=== PATIENT | male | born 1940 | race Caucasian/White ===

== ENCOUNTER 2016-06-26 05:10 | Day surgery (SDC) | payer MEDICARE ==
[2016-06-25 15:02] LABS: HEMATOCRIT 45.9 % (42.0-54.0); HEMOGLOBIN 16.1 g/dL (13.5-17.5); MCH 32.6 pg (26.0-34.0); MCHC 35.1 g/dL (31.0-37.0); MCV 92.9 fL (80.0-100.0); MEAN PLATELET VOLUME 9.4 fL (7.4-10.4); RBC 4.94 10x6/uL (4.20-6.10); RDW 13.6 % (11.5-14.5); WBC 9.2 10x3/uL (4.8-10.8)
[~2016-06-26] VITALS: Ht 175.3 cm; Wt 74.8 kg
[2016-06-26 08:08] VITALS: BP 136/78; Ht 175.3 cm; Wt 74.8 kg
--- NOTE | 2016-06-26 12:44 | NUR ---
VERSED 1 MG GIVEN FOR RESTLESS PT. PAIN CONTINUED AT A 9 EVEN AFTER PAIN MEDICATION GIVEN. AFTER VERSED PT. SLEEP RESTED QUIETLY, AROUSABLE BY VERBAL STIMULI. ON TRANSPORT TO [facility] PT RESTING QUIETLY. THROAT STILL DRY AFTER 2-3 TABLESPOONS OF ICE CHIPS.
--- NOTE | 2016-06-26 13:40 | NUR ---
1330-MEDICATED WITH ONE 5MG NORCO FOR PAIN.
--- NOTE | 2016-06-26 16:10 | NUR ---
ASSISTED PATIENT TO WALK TO BATHROOM TO ATTEMPT TO VOID. STOOD IN FRONT OF TOILET, UNABLE TO VOID DESPITE FEELING URGE. WATER FAUCET TURNED ON, STILL UNABLE TO VOID. RETURNED TO BED. RIGHT INGUINAL INCISION C/D/I, AREA SOFT, NONTENDER. DENIES COMPLAINTS EXCEPT FOR NEED TO URINATE
--- NOTE | 2016-06-26 19:32 | NUR ---
16 FR MASON CATHETER INSERTED PER DR REAL ORDER AND ADVISED PATIENT TO GO TO DR REAL'S OFFICE Saturday06/28/16 AT 10:00 TO HAVE IT REMOVED. PATIENT TOLERATED PROCEDURE WELL. NO DIFFICULTY INSERTING MASON. CLEAR YELLOW URINE FLOWING
--- NOTE | 2016-06-26 19:41 | NUR ---
500 CC CLEAR YELLOW URINE DRAINED. PATIENT DISCHARGED HOME VIA WHEELCHAIR TO PRIVATE VEHICLE WITH DAUGHTER AND SPOUSE
--- NOTE | 2016-08-15 10:17 | HP ---
PATIENT: KATIE PHILIP MEDICAL RECORD: [id number] ACCOUNT: [id number] [facility] : 40 ADMISSION DATE: 06/26/16 HISTORY AND PHYSICAL EXAMINATION This is a history and physical addendum. The patient has had a CT scan recently, which showed an abnormality in the liver and an MRI with and without contrast of the liver has been recommended. I will ask my nurse Mercy to coordinate with Dr. Beal's office regarding this. The patient is undergoing a workup by Dr. Stinson. The patient states that he has had some blood in his sperm recently. I told him that when he sees Dr. Stinson on the , he might want to mention that to Dr. Stinson. The rest of the history and physical examination is a typed history and physical and is on the chart. It is unchanged otherwise. TRANSINT:[id number] Voice Confirmation ID: [id number] DOCUMENT ID: [id number] NADYA REAL MD at 1017 CC: NICK BEAL M.D. and [facility] [id number] DICTATION DATE: 06/26/16 1142 E/M ENGINEER: 06/26/16 1157 [facility] 06/26/16 [id number] [place] [address]
--- NOTE | 2016-08-15 10:17 | OP ---
PATIENT NAME: KATIE PHILIP MEDICAL RECORD: [id number] :40 LOCATION:[facility] ADMISSION DATE: SURGEON: NADYA REAL MD DATE OF OPERATION: 06/26/2016 PREOPERATIVE DIAGNOSIS: Symptomatic right inguinal hernia. POSTOPERATIVE DIAGNOSIS: Symptomatic right indirect inguinal hernia. PROCEDURE: Open right indirect inguinal herniorrhaphy with bilayer preperitoneal polypropylene mesh. SURGEON: Nadya Real MD FUEL CELL TECHNICIAN: None. BLOOD LOSS: Minimal. ANESTHESIA: General. COMPLICATIONS: None. The risks, possible complications and alternatives to procedure were explained to the patient. He elects to proceed. The discussion specifically included, but was not limited to, bleeding requiring emergency reoperation, infection, intestinal injury, as well as recurrent herniation. OPERATIVE COURSE: The patient was conveyed to the operating room electively on 06/26/2016. General anesthesia was induced by the anesthesia staff. The genitals and abdomen were sterilely prepped and draped. A transverse incision was accomplished in the right inguinal area. Sharp dissection was carried down through skin and subcutaneous tissue as well as Yovani fascia. I cleaned the external oblique aponeurosis of overlying connective tissue. I incised the external oblique aponeurosis along the direction of its fibers. I bluntly dissected down through the internal oblique and transversus abdominis muscle layers. A preperitoneal pocket was fashioned bluntly. An indirect hernia was reduced in its entirety. I opened the hernia sac. There was a sliding component. I excised the portions of the hernia sac and then closed it with a running 3-0 Vicryl suture. I then cut out 2 ovals of polypropylene mesh and sutured one oval on top of the other oval. I then placed the mesh in the preperitoneal space. Once I was satisfied with placement, I allowed the muscular layers to come together over the mesh. The internal oblique and transversus abdominis muscle layers were sutured to underlying mesh with multiple interrupted horizontal mattress 0-Surgidac sutures. The external oblique aponeurosis was closed with a running #1 Vicryls. Yovani fascia was closed with interrupted 3-0 Vicryls. The subdermis was approximated with interrupted 3-0 Vicryl. The skin was approximated with a running intracuticular 4-0 Vicryl. Benzoin and Steri-Strips were applied. The patient was then extubated and conveyed to post-anesthesia care unit where he was in stable condition. TRANSINT:[id number] Voice Confirmation ID: [id number] DOCUMENT ID: [id number] OPERATIVE REPORT [id number] KATIE PHILIP ROBERT MD at 1017 CC: NICK BEAL M.D., LUCA RIVERA and KALE HILTON MD [id number] DICTATION DATE: 06/26/16 1145 EDGING CATCHER: 06/26/16 1308 [facility] 06/26/16 [id number] [place] [address]
== END 2016-06-26 19:41 | disposition home or self-care (01) ==
LOC: D.OPS 05:10 → D.PAN 10:15 → D.OPS 10:15
PROVIDERS: Anesthesiology
DX: K40.90 Unilateral inguinal hernia, without obstruction or gangrene, not specified as recurrent (principal)

== ENCOUNTER → 2017-03-08 07:24 | Outpatient (CLI) | payer MEDICARE ==
[2016-06-26 08:08] VITALS: BMI 24.4
== END | disposition home or self-care (01) ==
LOC: D.CT 07:24
DX: M79.605 Pain in left leg (principal); M79.604 Pain in right leg

== ENCOUNTER → 2017-05-23 07:26 | Outpatient (CLI) | payer MEDICARE ==
[2016-06-26 08:08] VITALS: BMI 24.4
[~2017-05-23 07:26] MED LIST: ADVIL200 MG PO; NORCO 7.5/325 T1 TA1 PO; ZANTAC150 MG PO
--- NOTE | 2017-05-28 08:55 | EC ---
PATIENT:KATIE PHILIP DATE OF SERVICE: 05/23/17 SEX: M MEDICAL RECORD: [id number] DATE OF : 40 [facility] AGE OF PATIENT: 76 ADMISSION DATE: 05/23/17 REFERRING PHYSICIAN: INTERPRETING PHYSICIAN: MAGDI SHARMA MD ECHOCARDIOGRAM REPORT ECHO CHARGES 4 ECHO COMPLETE CLINICAL DIAGNOSIS: CHEST PAIN,SOB,CLAUDICATION ECHOCARDIOGRAPHIC MEASUREMENTS (adult normal given) AC root (d.<3.7cm) 3.3 cm LV Septum d (<1.2 cm> 1.5 cm Valve Excursion 1.3 cm LV Septum (systole) 1.7 cm Left Atria (s.<4.0cm> 4.0 cm LVPW d(<1.2cm) 1.5 cm RV (d.<2.3cm) 3.0 cm LVPW (sytole) 1.7 cm LV diastole(<5.6CM) 6.2 cm MV E-F(>70mm/sec) cm LV systole 4.7 cm LVOT Diameter 17 cm MV exc.(>10mm) 1.8 cm Est.ejection fraction (50-75%) % Pericardial Effusion N DOPPLER: LVIT cm/sec A 86.0 cm/sec E 46.0 cm/sec LA cm/sec RVSP 36 mmHg LVOT 85 cm/sec AOP1/2T m/s Asc. Ao 157 cm/sec RVOT 59 cm/sec RA cm/sec PA 142 cm/sec AV Gradient Peak 9.84 mmHg AV Mean 5.20 mmHg AV Area 1.1 cm MV Gradient Peak 2.7 mmHg MV Mean 0.73 mmHg MV Area cm COMMENTS: Meter Record Clerk: 2 ROBERT ECHEVARRIA First Aid Attendant: 4 Dr. Sharma TAPE# PACS DATE OF SERVICE: 05/23/2017 PROCEDURE: Transthoracic echocardiogram. FINDINGS: 1. The left ventricle is in upper limits of normal and ____ diastolic dimension. There is evidence of moderate left ventricular hypertrophy that is concentric in nature. 2. The overall ejection fraction appears to be lower limits of normal at 50% to 55%. There are no obvious regional wall motion abnormalities. Inflow ECHOCARDIOGRAM REPORT [id number] KATIE PHILIP characteristics show diastolic dysfunction. 3. The aortic valve appears to be sclerotic without any evidence of significant aortic stenosis. 4. The left atrium is mildly dilated. 5. The right atrium is mildly dilated to moderately dilated. 6. The right ventricle is mildly dilated with right ventricular hypertrophy with normal function. 7. The interatrial septum is normal. 8. Pericardium is normal. 9. The pulmonic valve has trace pulmonic insufficiency. 10. The IVC appears to be normal size, but does not collapse with inspiration. CONCLUSIONS: The patient has evidence of mild dilated left ventricular chamber with low normal ejection fraction. There is some evidence of possible septal hypokinesis with normal demonstrated. There are no gross valvular abnormalities. There is evidence of aortic sclerosis without stenosis. TRANSINT:[id number] Voice Confirmation ID: [id number] DOCUMENT ID: [id number] MAGDI SHARMA MD at 0855 CC: [id number] DICTATION DATE: 05/27/17821 DRAFTER DIRECTIONAL SURVEY: 05/27/17 1039 [facility] CLI 05/23/17 [id number] [place] [address]
== END | disposition home or self-care (01) ==
LOC: D.RT 05-16 11:00 → D.ECHO 07:26 → D.RT 10:00
DX: I73.9 Peripheral vascular disease, unspecified (principal); R07.9 Chest pain, unspecified; R06.02 Shortness of breath; R09.89 Other specified symptoms and signs involving the circulatory and respiratory systems

== ENCOUNTER → 2017-05-29 17:22 | Outpatient (CLI) | payer MEDICARE ==
[2016-06-26 08:08] VITALS: BMI 24.4
[2017-05-29 18:46] LABS: ALBUMIN 3.2 g/dL (3.4-5.0); BILIRUBIN - DIRECT 0.24 mg/dL (0.00-0.30); BILIRUBIN - INDIRECT 0.4 mg/dL (0.00-1.00); BILIRUBIN - TOTAL 0.64 mg/dL (0.2-1.3); CHOL - HDL RATIO 2.5 ratio (2.3-4.9); LDL-HDL RATIO 1.1 ratio (1.5-3.5); PROTEIN - SERUM 6.2 g/dL (6.4-8.2)
== END | disposition home or self-care (01) ==
LOC: D.LABREF 17:22
PROVIDERS: Internal Medicine Cardiovascular Disease
DX: I25.10 Atherosclerotic heart disease of native coronary artery without angina pectoris (principal); I10 Essential (primary) hypertension; I20.9 Angina pectoris, unspecified

== ENCOUNTER 2017-06-25 07:09 | Outpatient (CLI) | payer MEDICARE ==
[~2017-06-25] VITALS: Ht 175.3 cm; Wt 65.5 kg
--- NOTE | ~2017-06-25 | OP ---
PATIENT NAME: KATIE PHILIP MEDICAL RECORD: [id number] :40 LOCATION:[facility] ADMISSION DATE: SURGEON: MAGDI WONG MD DATE OF OPERATION: 06/25/2017 PROCEDURES: Left heart catheterization, LV gram, coronary angiogram, selective bilateral renal angiography, AFR, selective left contralateral common femoral artery angiography, attempted atherectomy of the left SFA. DESCRIPTION OF PROCEDURE: The patient was brought into the cardiac catheterization lab in stable condition. Both groins were sterilely prepped and draped. The patient had a 6-[place] sheath placed in the right common femoral artery using modified Seldinger technique. We selectively engaged the left main coronary artery, the right coronary artery, the left ventricular cavity, the left renal artery, the right renal artery, the left common femoral artery from a contralateral position. We then exchanged the diagnostic catheters for interventional guiding peripheral catheters with a 45-cm destination sheath. We were able to place into the distal common femoral artery on the left from a contralateral position. We were then able to take a Frontrunner device and probe the ostium in the proximal segment of the left SFA. We were unable to get through the fibrous cap and although very diligent in its effort was unsuccessful in its results. The procedure was terminated. FINDINGS: 1. Left main has distal 30% to 40% stenosis and an ostial plaquing. 2. The LAD is a diffusely diseased vessel with an ostial 40% stenosis and a mid 40% stenosis. There is left to right collaterals from both the LAD and the circumflex segment. 3. The circumflex is a codominant vessel with diffuse plaquing. 4. The RCA is 100% occluded proximally with right to right and left to right collaterals. 5. The left renal artery has mild plaquing. 6. The right renal artery has proximal 50%. 7. Hemodynamics: Left ventricular ejection fraction shows inferior basilar aneurysmal segment with preserved anterior apical and lateral wall function. Overall, ejection fraction is 35% to 40%. End-diastolic pressure was normal. There is no significant mitral regurgitation. 8. The abdominal aorta has diffuse atherosclerotic changes. 9. The left common iliac has atherosclerotic changes. 10. The left internal iliac and external iliac have atherosclerotic changes. No significant stenoses. 11. The left common femoral artery has mild calcification. 12. The left profunda is widely patent and providing collaterals through the adductor canal. There is at least 3-vessel flow to the level of the mid leg. There was a good popliteal segment. 13. The right common femoral artery has a 50% stenosis. There is an ulcerated plaque seen in the right common carotid artery. 14. The right internal iliac artery has a proximal 50% stenosis. 15. The right external iliac artery is widely patent. 16. The right common femoral artery is normal. 17. The right profunda shows no significant disease. 18. The right SFA is 100% occluded and has collateralization to the adductor canal and there is at least 3-vessel flow to the level of the mid leg. IMPRESSION: OPERATIVE REPORT [id number] KATIE PHILIP 1. Severe single-vessel coronary artery disease. 2. 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 3. Severe bilateral SFA stenoses with an unsuccessful attempt at percutaneous atherectomy at the left SFA. RECOMMENDATIONS: At this point are to consider returning with more aggressive approach from a popliteal aspect of revascularization versus continuing medical management and no intervention versus possible referral for bypass surgery with the fem-pop bilaterally. At this point in time, there is no threatened ischemia. There is no ulceration. The patient is clinically stable. We will continue current medical management. Discussed with the patient these options. TRANSINT:[id number] Voice Confirmation ID: [id number] DOCUMENT ID: [id number] MAGDI WONG MD at 1038 CC: [id number] DICTATION DATE: 06/25/17 0953 GRAIN ELEVATOR WORKER: 06/25/17 1157 [facility] CLI 06/25/17 [facility] [address] [place] [address]
--- NOTE | ~2017-06-25 | HEMODYNAMI ---
PATIENT:KATIE PHILIP MEDICAL RECORD: [id number] : 40 LOCATION:[facility] ADMISSION DATE: 06/25/17 Generatedon:06/25/20179:55 Patient name: KATIE PHILIP Patient #: [id number] SSN: : 1940 Date of study: 06/25/2017 Page: Of Hemodynamic Procedure Report Patient Data Patient Demographics Procedure consent was obtained First Name: KATIE Gender: Male Last Name: CEDRICK : 1940 [facility] Initial: J Age: 76 year(s) Patient #: [id number] Race: Unknown Additional ID: [id number] Contact details [address]: [address] [place] [address] State: [place] City: [place] Zip code: [address] Past Medical History Allergies: No known allergies Admission Admission Data Admission Date: 06/25/2017 Admission Time: 7:09 Admit Source: Other Lab Results Lab Result Date: 06/25/2017 Lab Result Time: 7:30 Biochemistry Name Units Result Min Max BUN mg/dl 17 --(---*)-- 7 18 Creatinine mg/dl 1.1 --(--*-)-- 0.6 1.3 CBC Name Units Result Min Max Hematocrit % 39.5 -*(----)-- 42 54 Hemoglobin g/dl 13.8 --(*---)-- 13.5 17.5 Procedure Procedure Types Cath Procedure Diagnostic Procedure LHC LHC w/Coronaries Miscellaneous Procedures Moderate Sedation up to 45 minutes Peripheral Cath Diagnostic Procedure Cath Peripheral Hzypo-Zvwrwiz-Oam-Off Renal Arteriogram Procedure Description Procedure Date Procedure Date: 06/25/2017 Procedure Start Time: 8:56 Procedure End Time: 9:48 Procedure Staff Name Function Kirsten Martinez RT Monitor Anthony Dubose RT Scrub Javier Sharma MD Performing Physician Mic Torres RN Nurse Procedure Data Cath Procedure Fluoroscopy Diagnostic fluoroscopy Total fluoroscopy Time: 17 time: 17 min min Diagnostic fluoroscopy Total fluoroscopy dose: 700 dose: 700 mGy mGy Contrast Material Contrast Material Type Amount (ml) Isovue 300 110 Entry Location Entry Primary Successful Side Size Upsize Upsize Entry Closure Succes sful Closure Location (Fr) 1 (Fr) 2 (Fr) Remarks Device Remarks Femoral Right 5 Fr 6 Fr 6 Fr Exoseal artery Long Short Estimated blood loss: 10 ml Diagnostic catheters Device Type Used For End Catheter Placement MULTIPACK JL 4.0 5Fr Procedure catheter MULTIPACK 3DRC 5Fr Procedure catheter MULTIPACK Pigtail 5 Fr Procedure catheter Procedure Complications No complications Procedure Medications Medication Administration Route Dosage 0.9% NaCl I.V. 100 ml Oxygen NC 2 l/min Heparin Flush Bag added to field 2 bags (1000units/500ml NS) Lidocaine 2% added to field 20 Benadryl I.V. 50 mg Versed I.V. 1 mg Fentanyl I.V. 25 mcg Heparin Bolus I.V. 5000 units Fentanyl I.V. 25 mcg Hemodynamics Rest HGB: 13.8 (g/dl) Heart Rate: 59 (bpm) Pressure Samples Time Site Value (mmHg) Purpose Heart Use Rate(bpm) 9:02 AO 188/81(119) Snapshot 55 9:07 LV 195/8,19 EDP 55 9:07 LV 185/11,15 Pullback 54 9:07 AO 193/70(117) Pullback 54 Gradients Valve Time Site 1 Site 2 Mean SEP/DFP Peak To Heart Use (mmHg) (sec/min) Peak Rate (mmHg) (bpm) Aortic 9:07 LV AO 0 13 0 54 185/11,15 193/70(117) Calculations Valve P-P Mean Valve Index Valve Source Name Gradient Area Flow (cm2) Aortic 0 0 0 0 Snapshots Pre Cath Intra NCS Post Cath Vital Signs Time Heart Resp SPO2 etCO2 NIBP (mmHg) Rhythm Pain Sedation Rate (ipm) (%) (mmHg) Status Level (bpm) 8:38:01 56 22 98 0 185/85(163) NSR 0 (11) 10(A) , No pain 8:42:50 56 16 100 0 197/102(173) NSR 0 (11) 10(A) , No pain 8:47:39 58 16 100 0 187/95(162) NSR 0 (11) 10(A) , No pain 8:52:25 53 17 100 0 186/94(160) NSR 0 (11) 10(A) , No pain 8:57:10 53 15 100 0 182/90(160) NSR 0 (11) 10(A) , No pain 9:02:30 54 14 100 0 186/91(162) NSR 0 (11) 10(A) , No pain 9:07:49 55 14 100 0 176/86(145) NSR 0 (11) 9(A) , No pain 9:12:36 57 14 99 0 180/88(152) NSR 0 (11) 9(A) , No pain 9:17:25 56 14 99 0 180/80(150) NSR 0 (11) 9(A) , No pain 9:22:12 56 16 100 0 174/86(153) NSR 0 (11) 9(A) , No pain 9:26:56 57 17 100 0 184/90(161) NSR 0 (11) 9(A) , No pain 9:31:45 57 12 100 0 192/91(168) NSR 0 (11) 9(A) , No pain 9:37:05 57 14 100 0 189/94(159) NSR 0 (11) 9(A) , No pain 9:41:54 57 16 100 0 189/98(164) NSR 0 (11) 10(A) , No pain 9:46:40 58 12 100 0 191/100(167) NSR 0 (11) 9(A) , No pain Medications Time Medication Route Dose Verified Delivered Reason Notes Effectiveness by by 8:41:26 0.9% NaCl I.V. 100 Mic Mic Per physician ml Melissa Torres RN, RN 8:41:38 Oxygen NC 2 Mic Mic Per physician l/min Melissa Torres RN, RN 8:41:50 Heparin Flush added 2 Mic Mic used for Bag to bags Melissa Torres procedure (1000units/500ml field BAN CEVALLOS NS) 8:42:01 Lidocaine 2% added 20ml Mic Mic for local to vial Melissa Torres anesthetic field BAN CEVALLOS 8:42:17 Benadryl I.V. 50 mg Mic Mic Per physician Melissa Torres RN, RN 9:00:41 Versed I.V. 1 mg Mic Mic for sedation Lorigan Lorigan RN RN 9:00:51 Fentanyl I.V. 25 Mic Haile for sedation mcg Melissa Torres RN RN 9:16:10 Heparin Bolus I.V. 5000 Mic Haile for units Melissa Torres anticoagulation RN RN 9:43:18 Fentanyl I.V. 25 Mic Haile for sedation mcg Melissa Torres RN post doctoral fellow Log Time Note 8:10:23 Mic Torres RN sent for patient. Start room use. 8:29:50 Informed consent obtained and on chart 8:30:17 Admit Source: Other 8:30:20 Diagnostic Cath status Elective 8:30:23 Time tracking: Regular hours 8:30:27 Plan of Care:Hemodynamics will remain stable., Cardiac rhythm will remain stable., Comfort level will be maintained., Respiratory function will remain adequate., Patient/ family verbilizes understanding of procedure., Procedure tolerated without complication., Recovers from procedure without complications.. 8:30:45 H&P Date Dictated: 06/13/2017 Within 30 days and on chart., H&P Addendum completed by physician on day of procedure. (MUST COMPLETE FOR ALL OUTPATIENTS). 8:31:02 Patient received from Pre/Post Procedure Room to CCL 1 Alert and oriented. Tansferred to table in Supine position. 8:31:03 Correct patient and procedure confirmed by team. 8:31:03 Warm blankets applied, and heather hugger turned on for patient comfort. 8:31:04 ECG and BP/O2 sat monitors applied to patient. 8:31:06 Pre-op teaching completed and patient verbalized understanding. 8:31:06 Pre-procedure instructions explained to patient. 8:31:07 Family in waiting room. 8:31:08 Patient NPO since Midnight. 8:31:15 Patient allergic to No known allergies 8:31:32 Is the patient allergic to Iodine/contrast media? No. 8:31:33 Is patient on blood thinner?Yes 8:31:35 ACC The patient was administered the following blood thiners within the last 24 hours: ACCPlavix 8:31:37 Patient diabetic? No. 8:31:39 Previous problem with sedation/anesthesia? No ? 8:31:40 Snore? No 8:31:41 Sleep apnea? No 8:31:42 Opens mouth fully? Yes 8:31:42 Deviated septum? No 8:31:43 Sticks out tongue? Yes 8:31:44 Airway obstruction? No ? 8:31:49 Dentures? Yes In tight 8:31:53 Patient pain scale 0/10 ?. 8:32:07 IV patent on arrival in left forearm with 0.9% NaCl at [facility]. 8:34:20 Lab Result : Hemoglobin 13.8 g/dl 8:34:20 Lab Result : Hematocrit 39.5 % 8:34:20 Lab Result : BUN 17 mg/dl 8:34:20 Lab Result : Creatinine 1.1 mg/dl 8:34:25 Lab results completed and on chart. 8:34:29 Bilateral groins area was prepped with chlora-prep and draped in sterile fashion 8:34:30 Sharps counted by scrub and verified by R.N. 8:34:30 Alarms reviewed by R. N. 8:36:33 Vital chart was started 8:41:06 Baseline sample Acquired. 8:41:11 Rhythm: sinus bradycardia 8:41:13 Full Disclosure recording started 8:41:26 0.9% NaCl 100 ml I.V. was administered by Mic Torres RN; Per physician; 8:41:38 Oxygen 2 l/min NC was administered by Mic Torres RN; Per physician; 8:41:50 Heparin Flush Bag (1000units/500ml NS) 2 bags added to field was administered by Mic Torres RN; used for procedure; 8:42:01 Lidocaine 2% 20ml vial added to field was administered by Mic Torres RN; for local anesthetic; 8:42:17 Benadryl 50 mg I.V. was administered by Mic Torres RN; Per physician; 8:44:50 Use device set Femoral Dx 8:44:58 Tegaderm 4 x 4 (1626W) opened to sterile field. 8:45:00 ACIST Manifold (25982) opened to sterile field. 8:45:01 ACIST Hand Control (13144) opened to sterile field. 8:45:02 ACIST Syringe (48748) opened to sterile field. 8:45:03 Bag Decanter (2002) opened to sterile field. 8:45:04 Medline Cath Pack ([id number]) opened to sterile field. 8:45:08 SHEATH 5FR Rayle (JAI401) opened to sterile field. 8:45:09 DIAGNOSTIC WIRE .035 260cm J wire (943421) opened to sterile field. 8:45:11 DIAGNOSTIC Multipack 5Fr catheter set (XP0676) opened to sterile field. 8:45:17 MICROPUNCTURE 4FR Cook (D36283) opened to sterile field. 8:48:30 Final Timeout: patient, procedure, and site verified with staff and physician. All members of the team are in agreement. 8:48:30 --------ALL STOP TIME OUT------ 8:48:34 Bilateral groins site verified by team. 8:48:38 Physical assessment completed. ASA score P 2 - A patient with mild systemic disease as per Javier Sharma MD. 8:48:41 Sedation plan: IV Moderate Sedation Medication:Versed, Fentanyl 8:52:55 Zero performed for pressure channel P1 8:56:38 Procedure started. 8:56:52 Local anesthetic to right femoral artery with Lidocaine 2% by Javier Sharma MD.INITIAL ACCESS ONLY 8:59:30 Access obtained with 4Fr micropunture. 8:59:41 A 5 Fr sheath was inserted into the Right Femoral artery 9:00:41 Versed 1 mg I.V. was administered by Mic Torres RN; for sedation; 9:00:51 Fentanyl 25 mcg I.V. was administered by Mic Torres RN; for sedation; 9:00:54 A MULTIPACK JL 4.0 5Fr catheter was advanced over the wire and used for Procedure. 9:02:02 LCA angiography performed. 9:03:56 Catheter exchanged over wire. 9:04:02 A MULTIPACK 3DRC 5Fr catheter was advanced over the wire and used for Procedure. 9:04:36 RCA angiography performed. 9:05:16 Left renal angiography performed. 9:05:17 Right renal angiography performed. 9:05:23 Catheter exchanged over wire. 9:05:41 A MULTIPACK Pigtail 5 Fr catheter was advanced over the wire and used for Procedure. 9:07:40 LV angiography performed. 9:07:43 LV gram done using TAYLOR 9:07:53 EF : 40 % 9:07:55 LV hemodynamics recorded. 9:07:57 Injector settings: Ml/sec: 12, Volume: 8, 9:09:21 Abdominal Aortagram was performed. 9::23 Left leg runoff performed. 9::45 Right leg runoff performed. 9:16:10 Heparin Bolus 5000 units I.V. was administered by Mic Torres RN; for anticoagulation; 9:21:04 SHEATH 6FR Destination (RSR01) opened to sterile field. 9:21:49 GLIDE WIRE ANGLE 260cm (RA1166) opened to sterile field. 9:22:23 preparing for intervention of the right leg 9:22:46 Sheath upsized to a 6 Fr Long. 9:23:18 DESTINATION SHEATH ADVANCED AROUND THE HORN OVER THE GLIDE WIRE 9:23:51 INFLATOR Merit BasixCompak (MP4338) opened to sterile field. 9:25:00 Micro Guide Catheter advanced. 9:25:25 FrontRunner advanced. 9:26:26 TORQUE DEVICE PLASTIC .038 ( TD01) opened to sterile field. 9:26:53 FRONTRUNNER Microglide catheter ([id number]) opened to sterile field. 9:26:54 FRONTRUNNER XP MIN[employer]AL [employer]ESSING [employer]OURER catheter ([id number]) opened to sterile field. 9:27:41 SHEATH 6FR Rayle (TOU041) opened to sterile field. 9:36:14 Multiple attempts made to advance FrontRunner across lesion. 9:39:02 FrontRunner removed, unable to cross lesion. 9:40:24 Sheath upsized to a 6 Fr Short. 9:40:49 Sheath removed intact; hemostasis achieved with Exoseal to the Right Femoral artery. 9:40:57 EXOSEAL 6Fr (EX600) opened to sterile field. 9:41:45 Procedure ended.(Physican Out) 9:43:18 Fentanyl 25 mcg I.V. was administered by Mic Torres RN; for sedation; 9:44:35 Fluoroscopy time 17.00 minutes. 9:44:39 Fluoroscopy dose: 700 mGy 9:44:39 Flurop Dose total: 700 9:44:43 Contrast amount:Isovue 300 110ml. 9:44:44 Sharps counted by scrub and verified by R.N. 9:44:51 Insertion/operative site no bleeding no hematoma. 9:44:54 Post-op/insertion site Right Femoral artery dressed using a 4 x 4 and Tegaderm. 9:44:55 Post Procedure Pulses reassessed and unchanged 9:44:59 Post-procedure physical assessment completed. ASA score P 2 - A patient with mild systemic disease as per Javier Sharma MD. 9:45:02 Post procedure rhythm: unchanged. 9:45:05 Estimated blood loss: 10 ml 9:45:06 Post procedure instruction explained to patient.Patient verbalizes understanding. 9:45:07 Patient needs reinforcement of post procedure teaching. 9:45:44 Procedure type changed to Cath procedure, Diagnostic procedure, LHC, LHC w/Coronaries, Miscellaneous Procedures, Moderate Sedation up to 45 minutes, Peripheral Cath Diagnostic Procedure, Cath Peripheral, Osxro-Ykgxlln-Iao-Off, Renal Arteriogram 9:46:47 Procedure and supply charges have been captured, reviewed, submitted and are correct. 9:46:49 Procedure Complication : No complications 9:48:44 Vital chart was stopped 9:48:45 See physician's report for complete and final results. 9:48:47 Report given to Pre/Post Procedure Room. 9:48:50 Patient transfered to Pre/Post Procedure Room with Stretcher. 9:48:53 Full Disclosure recording stopped 9:48:53 Procedure ended. 9:49:04 End room use (Document Last) 9:54:54 Pt began to develop a hematoma at the right groin site. Femstop applied at 220. 9:55:03 FEMSTOP Gold (B55709) opened to sterile field. Device Usage Item Name Manufacture Quantity Catalog Hospital Part Current Minimal Lot# / Number Charge Number Stock Stock Serial# Code Tegaderm 4 x 3M 1 1626W [id number] [id number] 5 4 (1626W) ACIST Acist 1 00839 986752 809130 075878 5 Manifold Medical (68438) Systems Inc ACIST Hand Acist 1 46829 247892 711222 265934 5 Control Medical (42540) Systems Inc ACIST Syringe Acist 1 84522 133435 985977 408949 20 (55578) Medical Systems Inc Bag Decanter Microtek 1 2001S 006607 62494 660390 5 (2001S) Medical Inc. Medline Cath Cardinal 1 [id number] 010896 01192 946816 5 [facility] ([id number]) SHEATH 5FR Terumo 1 DZA033 692998 302818 683554 40 Rayle (ZYW406) DIAGNOSTIC St Jimmy 1 906955 095555 858842 542219 30 WIRE .035 260cm J wire (663744) DIAGNOSTIC Cardinal 1 ZC7631 117453 61001 039068 30 Multipack 5Fr Health catheter set (YY2586) MICROPUNCTURE Cook Medical 1 Q18518 184092 469844 043954 5 4FR Cook (A55232) MULTIPACK JL Cardinal 1 970275 5 4.0 5Fr Health catheter MULTIPACK Cardinal 1 594758 5 3DRC 5Fr Health catheter MULTIPACK Cardinal 1 214021 5 Pigtail 5 Fr Health catheter SHEATH 6FR Terumo 1 RSR01 697026 53365 178833 5 Destination (RSR01) GLIDE WIRE Terumo 1 TD1820 165891 307910 395682 5 ANGLE 260cm (HK5038) INFLATOR Lozo 1 TL6778 695529 268927 425509 15 [facility] Medical BasixCompak (ZK1089) TORQUE DEVICE [facility] 1 TD01 477668 142487 086447 5 PLASTIC .038 Scientific ( TD01) FRONTRUNNER Cardinal 1 QSM83546 987737 560754 031440 5 Microglide Health catheter (KFJ82182) FRONTRUNNER Bard 1 RBD44418 149546 183463 952767 5 XP [employer]ING [employer]OURER catheter (OJN31990) SHEATH 6FR Terumo 1 TXT864 760242 619929 742070 40 Rayle (AEO410) EXOSEAL 6Fr Cardinal 1 EX600 427428 241617 190157 10 (EX600) Health FEMSTOP Gold St Jimmy 1 O82359 564049 762848 965681 5 (W99113) Signature Audit [facility] Stage Time Signature Unsigned Intra-Procedure 06/25/2017 Anthony Dubose RT(R) 9:50:09 AM RT(R) 06/25/2017 9:54:18 AM Intra-Procedure 06/25/2017 Anthony Dubose 9:55:36 AM RT(R) Signatures Monitor : Kirsten Signature : Counts RT Date : Time : [facility] [address] [place] [address]
[2017-06-25] MEDS ORDERED: NORCO 7.5/325 T1 TA1 PO (07:23)
[2017-06-25] MEDS ORDERED: ADVIL200 MG PO (07:26)
[2017-06-25] MEDS ORDERED: ZANTAC150 MG PO (07:27)
[2017-06-25 07:30] VITALS: BP 184/86; Ht 175.3 cm; Wt 65.5 kg
[2017-06-25 07:41] LABS: BASOPHILS 0.2 % (0-2); HEMATOCRIT 39.5 % (42.0-54.0); HEMOGLOBIN 13.8 g/dL (13.5-17.5); IMMATURE GRANULOCYTES 0.3 % (0-5); MCH 33.3 pg (26.0-34.0); MCHC 34.9 g/dL (31.0-37.0); MCV 95.4 fL (80.0-100.0); MEAN PLATELET VOLUME 9.5 fL (7.4-10.4); MONOCYTES 11.1 % (2-11); NEUTROPHILS 74.4 % (40-80); PLATELET COUNT 180 10x3/uL (130-400); RBC 4.14 10x6/uL (4.20-6.10); RDW 13.5 % (11.5-14.5); WBC 9.1 10x3/uL (4.8-10.8)
[2017-06-25 08:04] LABS: ANION GAP 11.4 mmol/L (8-16); CALCIUM 8.8 mg/dL (8.5-10.1); CARBON DIOXIDE 31.6 mmol/L (21.0-32.0); CREATININE - SERUM 1.1 mg/dL (0.6-1.3)
== END 2017-06-25 14:10 | disposition home or self-care (01) ==
LOC: D.CATH 07:09
PROVIDERS: Internal Medicine Cardiovascular Disease
DX: I25.119 Atherosclerotic heart disease of native coronary artery with unspecified angina pectoris (principal); I70.1 Atherosclerosis of renal artery; I25.5 Ischemic cardiomyopathy; I70.0 Atherosclerosis of aorta; I70.213 Atherosclerosis of native arteries of extremities with intermittent claudication, bilateral legs; Z01.812 Encounter for preprocedural laboratory examination

== ENCOUNTER 2017-06-28 14:03 | Emergency (ER) | payer MEDICARE ==
[2017-06-25 07:30] VITALS: BMI 21.3
== END 2017-06-28 16:30 | disposition home or self-care (01) ==
LOC: D.ER 14:03
DX: S00.03XA Contusion of scalp, initial encounter (principal); W00.0XXA Fall on same level due to ice and snow, initial encounter; Y93.89 Activity, other specified; Y92.019 Unspecified place in single-family (private) house as the place of occurrence of the external cause; S16.1XXA Strain of muscle, fascia and tendon at neck level, initial encounter; S29.012A Strain of muscle and tendon of back wall of thorax, initial encounter; S39.012A Strain of muscle, fascia and tendon of lower back, initial encounter; M62.830 Muscle spasm of back

== ENCOUNTER → 2017-07-22 17:47 | Outpatient (CLI) | payer MEDICARE ==
[2017-06-25 07:30] VITALS: BMI 21.3
[2017-07-22 19:48] LABS: CHOL - HDL RATIO 1.2 ratio (2.3-4.9); LDL-HDL RATIO 0.1 ratio (1.5-3.5)
== END | disposition home or self-care (01) ==
LOC: D.LABREF 17:47
PROVIDERS: Internal Medicine Cardiovascular Disease
DX: E78.5 Hyperlipidemia, unspecified (principal)

== ENCOUNTER → 2018-01-23 17:59 | Outpatient (CLI) | payer MEDICARE ==
[2017-06-25 07:30] VITALS: BMI 21.3
[2018-01-23 19:03] LABS: CHOL - HDL RATIO 3.1 ratio (2.3-4.9); LDL-HDL RATIO 1.7 ratio (1.5-3.5)
== END | disposition home or self-care (01) ==
LOC: D.LABREF 17:59
PROVIDERS: Internal Medicine Cardiovascular Disease
DX: I10 Essential (primary) hypertension (principal)

== ENCOUNTER → 2018-03-10 18:23 | Outpatient (CLI) | payer MEDICARE ==
[2017-06-25 07:30] VITALS: BMI 21.3
[2018-03-10 19:42] LABS: LDL-HDL RATIO 1.7 ratio (1.5-3.5)
== END | disposition home or self-care (01) ==
LOC: D.LABREF 18:23
PROVIDERS: Internal Medicine Cardiovascular Disease
DX: I10 Essential (primary) hypertension (principal)

== ENCOUNTER → 2018-03-11 14:08 | Outpatient (CLI) | payer MEDICARE ==
[2017-06-25 07:30] VITALS: BMI 21.3
== END | disposition home or self-care (01) ==
LOC: D.MRI 14:08
DX: M54.16 Radiculopathy, lumbar region (principal)

== ENCOUNTER → 2018-07-15 16:36 | Outpatient (CLI) | payer MEDICARE ==
[2017-06-25 07:30] VITALS: BMI 21.3
[2018-07-15 18:07] LABS: CHOL - HDL RATIO 3.9 ratio (2.3-4.9); LDL-HDL RATIO 2.5 ratio (1.5-3.5)
== END | disposition home or self-care (01) ==
LOC: D.LABREF 16:36
PROVIDERS: Internal Medicine Interventional Cardiology
DX: I25.10 Atherosclerotic heart disease of native coronary artery without angina pectoris (principal)

== ENCOUNTER 2019-09-25 06:36 | Day surgery (SDC) | payer OTHER ==
[~2019-09-25] VITALS: Ht 175.3 cm; Wt 73.5 kg
[2019-09-25 07:10] LABS: CALCIUM 8.3 mg/dL (8.5-10.1); CARBON DIOXIDE 26.1 mmol/L (21.0-32.0); CREATININE - SERUM 1.3 mg/dL (0.6-1.3); POTASSIUM - SERUM 4.1 mmol/L (3.5-5.1)
[2019-09-25 07:24] LABS: BASOPHILS 0.4 % (0-2); HEMOGLOBIN 15.6 g/dL (13.5-17.5); IMMATURE GRANULOCYTES 0.2 % (0-5); LYMPHOCYTES 17.5 % (15-50); MCHC 32.5 g/dL (31.0-37.0); MCV 95.2 fL (80.0-100.0); MEAN PLATELET VOLUME 9.1 fL (7.4-10.4); MONOCYTES 9.7 % (2-11); NEUTROPHILS 71.2 % (40-80); RBC 5.04 10x6/uL (4.20-6.10); RDW 14.3 % (11.5-14.5)
[2019-09-25 07:25] LABS: PLATELET COUNT 219 10x3/uL (130-400)
[2019-09-25] MEDS ORDERED: LISINOPRIL20 MG PO (07:48)
[2019-09-25 08:01] VITALS: BP 143/66; Ht 175.3 cm; Wt 73.5 kg
[2019-09-25] MEDS ORDERED: KEFLEX500 MG PO (10:27)
[2019-09-25] MEDS ORDERED: HYDROCODON-ACE1 EAC7 PO (10:27)
--- NOTE | 2019-09-25 11:05 | NUR ---
1101-REC'D FROM RR. AWAKE AND ALERT.VSS. PAIN 08/24 TO SURGICAL SITE. SLING IN PLACE, ICE AND ELEVATED. REVIEWED DISCHARGE CRITERIA. CL IN EASY REACH. TOLERATING ICE WATER
--- NOTE | 2019-09-25 11:32 | NUR ---
1130-FULL LIQUID TRAY IN ROOM.
--- NOTE | 2019-09-25 12:08 | NUR ---
1155-DISCHARGE CRITERIA MET. REMOVED IV WITH CATH INTACT,DISPOSED INTO SHARPS.COVERED SITE WITH COTTON BALL,SECURED WITH MEDIPORE TAPE. REVIEWED POST OPERATIVE INSTRUCTIONS AND TO CALL DR BELCHER OFFICE SATURDAY TO CLARIFY FOLLOW UP APPOINTMENT. VERBALIZED UNDERSTANDING
--- NOTE | 2019-09-25 12:10 | NUR ---
1200-PT DRESSED. ESCORTED OUT VIA W/C WITH FRIEND AWAITING TO DRIVE HOME
--- NOTE | 2019-09-25 19:08 | OP ---
PATIENT NAME: KATIE LARA MEDICAL RECORD: [id number] :40 LOCATION:NADER ADMISSION DATE: SURGEON: JOSE CARLOS ARAUJO DO DATE OF OPERATION: 09/25/2019 PROCEDURE PERFORMED: Left olecranon bursectomy. PREOPERATIVE DIAGNOSIS: Left olecranon bursitis. POSTOPERATIVE DIAGNOSIS: Left olecranon bursitis. INDICATIONS: Mr. Lara is a 79-year-old male who has an expanding olecranon bursitis, was supposed to have it done about a month ago, but he said due to finances he could not. He reported to my clinic yesterday and the olecranon bursa was expanded to approximately the size of a baseball. I informed him we need to do skin plasty as well, which we did and he is at risk for recurrence as these have a high recurrence rate that we try to get it out and have it not come back, but that may not happen. Also, risks of damage to nerves in the area, the ulnar nerve, radial nerve and continued pain, loss of range of motion of the elbow as well as infection. He was aware of all that and he signed the consent. SURGEON: Jose Carlos Araujo DO DESCRIPTION OF PROCEDURE: The patient was taken to the operative suite, laid in supine position, given general anesthetic, 2 grams of Ancef and LMA was placed. The left upper extremity was then prepped and draped in sterile fashion. A timeout was performed and everyone was in agreeance with the correct side, site, patient, the procedure. We then began by marking out the incision with an elliptical type incision for the skin plasty. The left upper extremity was exsanguinated with an Esmarch, tourniquet was inflated to 250 mmHg, it was up for 23 minutes. I then made an incision along the olecranon bursa and curved it radially. Careful dissection was made down to the bursa, cleaned it off radially and then as we cleaned off ulnarly the bursa was right on the skin and it ruptured. We then removed the bursa and there was a large osteophyte off the olecranon process. This was chewed down with a rongeur. Once that was completed, tourniquet was let down and any bleeding was coagulated with the Bovie. We then did a skin plasty, which reduced the skin size due to the fact that it had been stretched out from the olecranon bursa. We approximately took out 8 x 1 cm portion of the skin in an elliptical type fashion to tighten up the skin over the olecranon. We then closed it with 3-0 Vicryl in an inverted interrupted fashion. This was finished by Price Grubbs, certified surgical assistant professor of surgery and then put ZipLine on the elbow, then dressed with Adaptic, 4 x 4s, ABD, Webril and Nilson wrap. He was then awakened and taken to recovery in stable condition. BLOOD LOSS: Minimal. COMPLICATIONS: None. TRANSINT:[id number] Voice Confirmation ID: [id number] DOCUMENT ID: [id number] OPERATIVE REPORT [id number] KATIE LARA,JOSE CARLOS Gordon DO at 1908 CC: [id number] DICTATION DATE: 09/25/19 1039 LIVE OUT NANNY: 09/25/19 1627 [facility] 09/25/19 [place] [id number] [place] [address]
== END 2019-09-25 12:00 | disposition home or self-care (01) ==
LOC: D.PAN 06:36 → D.OPS 09:30 → D.PAN 09:30
PROVIDERS: Anesthesiology; ATTEND Orthopaedic Surgery
DX: M70.22 Olecranon bursitis, left elbow (principal)

== ENCOUNTER → 2019-09-30 11:55 | Outpatient (CLI) | payer OTHER ==
[2019-09-25 08:01] VITALS: BMI 23.9
[~2019-09-30 11:55] MED LIST changes: +HYDROCODON-ACE1 EAC7 PO; +KEFLEX500 MG PO; +LISINOPRIL20 MG PO
[2019-09-30 14:05] LABS: ERYTHROCYTE SEDIMENTATION RATE 11 mm/hr (0-20)
[2019-09-30 14:07] LABS: BASOPHILS 0.2 % (0-2); EOSINOPHILS 0.7 % (0-7); HEMATOCRIT 49.6 % (42.0-54.0); HEMOGLOBIN 16.7 g/dL (13.5-17.5); IMMATURE GRANULOCYTES 0.2 % (0-5); LYMPHOCYTES 16.2 % (15-50); MCH 31.8 pg (26.0-34.0); MCHC 33.7 g/dL (31.0-37.0); MCV 94.5 fL (80.0-100.0); MEAN PLATELET VOLUME 9.2 fL (7.4-10.4); MONOCYTES 8.9 % (2-11); NEUTROPHILS 73.8 % (40-80); PLATELET COUNT 205 10x3/uL (130-400); RBC 5.25 10x6/uL (4.20-6.10); RDW 14.1 % (11.5-14.5); WBC 8.1 10x3/uL (4.8-10.8)
== END | disposition home or self-care (01) ==
LOC: D.LAB 11:55
PROVIDERS: ATTEND Orthopaedic Surgery
DX: M70.32 Other bursitis of elbow, left elbow (principal)